=== PATIENT | male | born 1980 | race African-American/Black ===

== ENCOUNTER 2018-12-06 12:08 | Emergency (ER) | payer SELFPAY ==
[2018-12-06] MEDS ORDERED: Ibuprofen 800 MG TAB ONE (12:30)
[2018-12-06] MEDS ORDERED: Ondansetron ODT 4 MG TAB ONE (12:30)
== END 2018-12-06 13:25 | disposition home or self-care (01) ==
LOC: NAV ERS 12:08
DX: B34.9 Viral infection, unspecified (principal); F17.210 Nicotine dependence, cigarettes, uncomplicated; J45.909 Unspecified asthma, uncomplicated; Z71.6 Tobacco abuse counseling
CPT/HCPCS: 99406; Q0162

== ENCOUNTER 2021-09-22 16:27 | Emergency (ER) | payer SELFPAY | END 2021-09-22 17:00 | disposition home or self-care (01) | LOC: NAV ERS 16:27 | DX: U07.1 COVID-19 (principal); J45.909 Unspecified asthma, uncomplicated; F17.210 Nicotine dependence, cigarettes, uncomplicated | CPT/HCPCS: 99283 ==

== ENCOUNTER 2024-07-20 20:15 | Emergency (ER) | payer BC, OTHER, SELFPAY ==
[2024-07-20] MEDS ORDERED: Ondansetron PF 4 MG/2 ML Vial ONE (20:24)
[2024-07-20] MEDS ORDERED: Etomidate 40 MG (20 mL) VIAL ONE (20:24)
[2024-07-20] MEDS ORDERED: Sodium Chloride 0.9% 1,000 ML ONE (20:25)
[2024-07-20] MEDS ORDERED: Rocuronium Bromide 10 MG/ML (10ML VIAL) ONE (20:25)
[2024-07-20 20:33] LABS: #Basophils 0.1 thou/uL (0.0-0.2); #Lymphocytes 2.3 thou/uL (1.20-3.40); #Monocytes 0.9 thou/uL (0.11-0.59); #Neutrophils 4.2 thou/uL (1.40-6.50); %Basophils 0.7 % (0.0-1.0); %Eosinophils 0.7 % (0.0-10.0); %Lymphocytes 30.8 % (21.0-51.0); %Monocytes 11.6 % (0.0-10.0); %Neutrophils 56.3 % (42.0-75.0); Hematocrit 47.5 % (42.0-52.0); Hemoglobin 15.5 g/dL (14.0-18.0); Mean Corpuscular HGB CONC 32.6 g/dL (32.0-36.0); Mean Corpuscular Hemoglobin 30.6 pg (27.0-31.0); Mean Platelet Volume 9.2 fL (7.4-10.4); Platelet Count 209 10x3/uL (130-400); RBC Distribution Width 12.2 % (11.5-14.5); Red Blood Cell (RBC) Count 5.05 mill/uL (4.70-6.10); White Blood Cell (WBC) Count 7.5 10x3/uL (4.8-10.8)
[2024-07-20 20:48] LABS: Acetaminophen Less than 10 mcg/mL (Less than 10); Alcohol Less than 10.0 mg/dL (Less than 10); Lipase 43 U/L (8-78); Salicylate Less than 8.0 mg/dL (Less than 8.0)
[2024-07-20 20:51] LABS: ALT (SGPT) 70 U/L (8-55); AST (SGOT) 41 U/L (5-34); Albumin 4.2 g/dL (3.5-5.0); Alkaline Phosphatase 95 U/L (40-110); Anion Gap 20 mmol/L (10-20); BUN (Urea Nitrogen) 20 mg/dL (8.9-20.6); Bilirubin, Total 0.2 mg/dL (0.2-1.2); CK (CPK) 650 U/L (30-200); Calc. Creatinine Clearance 0 mL/min (70-130); Calcium 9.7 mg/dL (7.8-10.44); Carbon Dioxide 18 mmol/L (22-29); Chloride 105 mmol/L (98-107); Estimated GFR 59; Globulin 3.9 g/dL (2.4-3.5); Glucose 153 mg/dL (70-105); Potassium 3.7 mmol/L (3.5-5.1); Protein, Total 8.1 g/dL (6.0-8.3); Sodium 139 mmol/L (136-145)
[2024-07-20 21:01] LABS: Troponin I 0.024 ng/mL (< 0.028)
[2024-07-20] MEDS ORDERED: PROPOFOL 0 ML ONE (21:01)
[2024-07-20] MEDS ORDERED: Propofol 1,000 MG/100 ML VIAL IV ONE (21:03)
[2024-07-20] MEDS ORDERED: levETIRAcetam 500 MG (5 mL) VIAL ONE ×2 (21:05→21:09)
[2024-07-20 23:45] LABS: Amphetamine Not Detected (NotDetected); Barbiturates Screen Not Detected (NotDetected); Benzodiazepine Screen Not Detected (NotDetected); Cocaine Metabolite Screen Not Detected (NotDetected); Methadone Not Detected (NotDetected); Methamphetamine Not Detected (NotDetected); Opiate Screen Not Detected (NotDetected); Oxycodone Screen Not Detected (NotDetected); Phencyclidine (PCP) Detected (NotDetected); THC/Cannabinoid Screen Not Detected (NotDetected); Tricyclic Screen Not Detected (NotDetected)
[2024-07-21] MEDS ORDERED: niCARdipine 20MG In NaCl 20 MG/200 ML BAG ONE (00:05)
== END 2024-07-20 21:48 | disposition short-term general hospital (02) ==
LOC: NAV ERS 20:15
DX: T65.91XA Toxic effect of unspecified substance, accidental (unintentional), initial encounter (principal); I16.9 Hypertensive crisis, unspecified; J96.00 Acute respiratory failure, unspecified whether with hypoxia or hypercapnia; R40.2422 Glasgow coma scale score 9-12, at arrival to emergency department; R40.2352 Coma scale, best motor response, localizes pain, at arrival to emergency department; R40.2142 Coma scale, eyes open, spontaneous, at arrival to emergency department; R40.2232 Coma scale, best verbal response, inappropriate words, at arrival to emergency department; F17.210 Nicotine dependence, cigarettes, uncomplicated
CPT/HCPCS: 31500; 36556; 71045; 80053; 80306; 80307; 82550; 83690; 84484; 85025; 96365; 96375; J1953; J2405; J2704; J7030

== ENCOUNTER 2025-07-13 17:54 | Emergency (ER) | payer OTHER ==
[2025-07-13] MEDS ORDERED: Ibuprofen 800 MG TAB ONE (18:23)
[2025-07-13] MEDS ORDERED: Nitroglycerin 2% Ointment 1 INCH/1 GM Packet ONE (19:50)
== END 2025-07-13 20:25 ==
LOC: NAV ERS 17:54 → EEVIPCON 17:54 → NAV ERS 20:25
DX: F16.10 Hallucinogen abuse, uncomplicated (principal); I10 Essential (primary) hypertension; Z79.899 Other long term (current) drug therapy
CPT/HCPCS: 93005; 96372; 99284; J2060